=== PATIENT | male | born 1985 | race Caucasian/White ===

== ENCOUNTER 2021-03-22 10:53 | Emergency (ER) | payer MEDICAID, SELFPAY | END 2021-03-22 11:36 | disposition left against medical advice (07) | PROVIDERS: Emergency Provider Emergency Medicine | DX: R10.31 Right lower quadrant pain (principal) ==

== ENCOUNTER 2022-01-27 07:52 | Emergency (ER) | payer MEDICAID, SELFPAY ==
--- NOTE | 2022-01-27 08:37 | PC.NURSE ---
security asked patient to move their car upon arrival to the ED. pt went to move car and never returned.
== END 2022-01-27 08:37 | disposition left against medical advice (07) ==
PROVIDERS: Emergency Provider Emergency Medicine
DX: R11.10 Vomiting, unspecified (principal)

== ENCOUNTER 2022-02-09 07:46 | Outpatient (REF) | payer MEDICAID, SELFPAY ==
[2022-02-09 08:36] LABS: COVID-19 Test Negative (Negative); IDNOW Serial# 16C4AD1C
== END 2022-02-09 07:47 | disposition home or self-care (01) ==
LOC: HO.LAB 07:46
PROVIDERS: Visit Provider Internal Medicine
DX: Z20.822 Contact with and (suspected) exposure to COVID-19 (principal)
CPT/HCPCS: 87635; C9803

== ENCOUNTER 2022-10-21 15:18 | Emergency (ER) | payer MEDICAID, SELFPAY | END 2022-10-21 19:06 | disposition left against medical advice (07) | PROVIDERS: Emergency Provider Emergency Medicine | DX: R51.9 Headache, unspecified (principal); R50.9 Fever, unspecified ==

== ENCOUNTER 2022-11-14 16:13 | Emergency (ER) | payer MEDICAID, SELFPAY | END 2022-11-14 17:29 | disposition left against medical advice (07) | PROVIDERS: Emergency Provider Emergency Medicine | DX: K92.0 Hematemesis (principal) ==

== ENCOUNTER 2023-06-17 16:24 | Emergency (ER) | payer MEDICAID, SELFPAY | END 2023-06-17 20:20 | disposition left against medical advice (07) | PROVIDERS: Emergency Provider Emergency Medicine | DX: M85.459 Solitary bone cyst, unspecified pelvis (principal) ==